=== PATIENT | female | born 1990 | race Caucasian/White ===

== ENCOUNTER 2022-10-19 12:12 | Outpatient (CLI) | payer OTHER ==
[2022-10-19 12:24] LABS: HCT - HEMATOCRIT 40.5 % (37.0-47.0); HGB - HEMOGLOBIN 12.8 g/dL (12.0-16.0); MEAN CORPUSCULAR HEMOGLOBIN 28.2 pg (27.0-31.0); MEAN CORPUSCULAR HGB CONC 31.6 g/dL (32.0-36.0); MEAN CORPUSCULAR VOLUME 89.2 fL (81.0-99.0); MEAN PLATELET VOLUME 9.1 fL (7.9-10.8); RED BLOOD COUNT 4.54 10^6/uL (4.20-5.40); RED CELL DISTRIBUTION WIDTH 12.6 % (12.0-15.0); WHITE BLOOD COUNT 7.5 x10^3/uL (4.8-10.8)
[2022-10-19 12:57] LABS: ESTIMATED AVERAGE GLUCOSE 117 mg/dL (70-100); HEMOGLOBIN A1c% 5.7 % (4.27-6.07)
[2022-10-19 13:02] LABS: THYROID STIMULATING HORMONE 1.01 uIU/mL (0.34-5.60)
[2022-10-19 13:04] LABS: FREE T4 (FREE THYROXINE) 0.91 ng/dL (0.58-1.64)
[2022-10-19 13:08] LABS: FERRITIN 22.5 ng/mL (11.0-306.8)
== END 2022-10-19 12:13 | disposition home or self-care (01) ==
LOC: LAB 12:12
PROVIDERS: ATTEND Nurse Practitioner
DX: E28.2 Polycystic ovarian syndrome (principal)
CPT/HCPCS: 36415; 82728; 83036; 84439; 84443; 85027

== ENCOUNTER 2022-11-22 18:48 | Outpatient (CLI) | payer OTHER ==
--- NOTE | 2022-11-23 09:52 | Ultrasound Report ---
PROCEDURE: Pelvic w/Transvaginal INDICATIONS: POLYCYSTIC OVARIAN SYNDROM, ABN UTERINE BLEEDING TECHNIQUE: Real-time scanning was performed of the pelvic organs, with image documentation. Additional endovagi nal scanning was necessary due to incomplete visualization of the adnexal and endometrial structures by transabdominal scanning. COMPARISON: None. FINDINGS: Uterus: Uterus is anteverted and normal in size at 7.5 x 4.3 x 5.2 cm. The myometrium is homogeneou s. The endometrium measures 12.5 mm in combined thickness. IUD appears present with what appears to be a portion in the lower uterine segment. However, it is poorly visualized. Ovaries: The right ovary measures 2.6 x 2.2 x 2.4 cm, with a calculated ovarian volume of 7.2 cc. T he left ovary measures 3.2 x 2.9 x 3.2 cm, with a calculated ovarian volume of 15.5 cc. Simple right ovarian cyst is present measuring 1.9 x 1.9 x 1.8 cm. Other: No pathologic free abdominal or pelvic fluid. IMPRESSION: Poorly visualized but appears to be an IUD with a portion of the lower uterine segment. Recommend cli nical correlation. Reviewed by: Sayra Madison MD on 11/23/2022 9:51 AM PDT Approved by: Sayra Madison MD on 11/23/2022 9:51 AM PDT Station ID: [id number]
== END 2022-11-22 18:49 | disposition home or self-care (01) ==
LOC: DI 18:48
PROVIDERS: ATTEND Nurse Practitioner
DX: E28.2 Polycystic ovarian syndrome (principal); N93.9 Abnormal uterine and vaginal bleeding, unspecified; Z97.5 Presence of (intrauterine) contraceptive device